=== PATIENT | male | born 1945 | race Caucasian/White ===

== ENCOUNTER 2023-04-17 12:51 | Emergency (ER) | payer MEDICARE, SELFPAY ==
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
[2023-04-17 12:58] VITALS: BP 134/83; PULSE 79; RESP 20; TEMP 36.4; O2SAT 100
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
[2023-04-17] MEDS: ACETAMINOPHEN 500 MG TABLET 1000 MG PO (13:46)
[2023-04-17 14:26] VITALS: BP 121/79; PULSE 55; RESP 19; O2SAT 100
[2023-04-17 15:40] VITALS: BP 116/67; PULSE 82; RESP 18; O2SAT 98
== END 2023-04-17 15:42 ==
LOC: ANHED 14:40
PROVIDERS: Emergency Provider Student in an Organized Health Care Education/Training Program
DX: S00.81XA Abrasion of other part of head, initial encounter (principal); S51.012A Laceration without foreign body of left elbow, initial encounter; S79.912A Unspecified injury of left hip, initial encounter; S69.92XA Unspecified injury of left wrist, hand and finger(s), initial encounter; M19.022 Primary osteoarthritis, left elbow; J34.1 Cyst and mucocele of nose and nasal sinus; M47.812 Spondylosis without myelopathy or radiculopathy, cervical region; Z98.1 Arthrodesis status; M85.88 Other specified disorders of bone density and structure, other site; Y04.0XXA Assault by unarmed brawl or fight, initial encounter
CPT/HCPCS: 70450; 72125; 73080; 73110; 73502; 99284; A9270

== ENCOUNTER 2023-05-08 16:44 | Emergency (ER) | payer MEDICARE, SELFPAY ==
--- NOTE | ~2023-05-08 | CT_ITS ---
EXAMINATION: CT cervical spine wo con DATE: 05/08/2023 20:13 INDICATION: fall, head injury TECHNIQUE: Computed tomography (CT) of the cervical spine was performed without intravenous contrast. Automated exposure control and iterative reconstruction technique were employed. The dose-length pro duct was 593.70 mGy-cm. COMPARISON: 04/17/2023. FINDINGS: Vertebral Body Alignment: Stable multilevel listheses. Reversed lordosis, centered at C4. Craniocervical and atlantoaxial alignment: Moderate degenerative change. Alignment intact. Osseous structures/fracture: No evidence of a lytic or blastic process in the visualized spine. No e vidence of acute fracture. Stable sclerosis of the C3-C5 vertebral bodies. Interbody devices and fusi on at C5-6 and C6-7, stable. Cervical soft tissues: The paraspinal soft tissues planes are maintained. Degenerative changes: Multilevel severe degenerative disc disease and mild-moderate facet arthropathy . Multilevel moderate neural foraminal and central canal narrowing. IMPRESSION: No acute fracture or traumatic malalignment in the cervical spine. Reviewed, dictated and finalized at location K. CAL LABORATORY MANAGER
--- NOTE | ~2023-05-08 | CT_ITS ---
EXAMINATION: CT brain wo con DATE: 05/08/2023 17:34 INDICATION: fall . TECHNIQUE: Computed tomography (CT) of the head was performed without intravenous contrast. The mA wa s adjusted according to patient size. Iterative reconstruction technique was employed. The dose-lengt h product was 1135.00 mGy-cm. COMPARISON: 04/17/2023. FINDINGS: No acute intracranial hemorrhage or extra-axial fluid collection. No hydrocephalus, mass, or herniation. No acute ischemic infarct. Unremarkable dural venous sinus attenuation. No acute osseous abnormality. Left maxillary opacification sclerosis and expansion likely secondary to a mucocele, the remaining ae rated spaces are clear. Moderate atrophy and chronic white matter change. Atherosclerotic intracranial calcification. Bilater al lens replacements. IMPRESSION: No acute intracranial process. Reviewed, dictated and finalized at location K. K CUTTER
--- NOTE | ~2023-05-08 | XR_ITS ---
EXAM: XR hip BI 2V w AP pelvis DATE: 05/08/2023 17:47 HISTORY: fall today left hip pain hx of surgery in pelvis and lumbar . COMPARISON: X-ray left hip 04/17/2023. FINDINGS: Decreased mineralization. No fracture or dislocation. Partially visualized posterior lumba r fusion hardware. Possibly abandoned stimulator wire over the lumbosacral junction/right upper pelvi s, with several adjacent surgical clips. Uncomplicated right SI joint hardware fusion. No lytic or bl astic lesion. Mild bilateral hip osteoarthritis. No erosion or periosteal change. Soft tissues within normal limits. IMPRESSION: No acute osseous finding in the pelvis or bilateral hips. Reviewed, dictated and finalized at location K. WALL MINING MACHINE TENDER
--- NOTE | ~2023-05-08 | CT_ITS ---
EXAMINATION: CT lumbar spine wo con DATE: 05/08/2023 20:13 INDICATION: back pain, fall . TECHNIQUE: Computed tomography (CT) of the lumbar spine was performed without intravenous contrast. A utomated exposure control and iterative reconstruction technique were employed. The dose-length produ ct was 1479.25 mGy-cm. COMPARISON: None. FINDINGS: 5 nonrib-bearing lumbar-type vertebral bodies. Status post posterior fusion spanning L2-L5. Uncomplicated appearing posterior lumbar and right SI joint fusion hardware. Interbody device at L5- S1, in good position. Status post L4 and L5 laminectomy. Metal artifact obscures detail in the centra l canal at multiple levels. Severe right neural foraminal narrowing at L2-3. Multilevel severe degene rative disc disease and severe facet arthropathy. Severe bilateral neural foraminal narrowing at L4-5 . Medullary nephrocalcinosis. Atherosclerotic calcifications.. IMPRESSION: No acute fracture or traumatic malalignment in the lumbar spine. Reviewed, dictated and finalized at location K. ERIOLOGIST PHARMACEUTICAL
[2023-05-08 16:46] VITALS: BP 93/62; PULSE 82; RESP 18; TEMP 36.6; O2SAT 99
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
[2023-05-08 20:03] LABS: Basophils Percent Auto 0.3 % (0.2-1.2); Eosinophils Percent Auto 0.1 % (0-4.4); Hematocrit 43.9 % (42.0-52.0); Hemoglobin 14.1 g/dL (14.0-18.0); Immature Granulocyte Absolute 0.03 K/mm3 (0.00-0.031); Immature Granulocyte Percent A 0.4 % (0-0.5); Lymphocytes Absolute Auto 0.57 K/mm3 (0.9-3.2); Lymphocytes Percent Auto 7.7 % (18.3-44.2); Mean Corpuscular HGB Conc 32.1 g/dl (32-36); Mean Corpuscular Hemoglobin 32.9 pg (26-34); Mean Corpuscular Volume 102.3 fl (80-100); Monocytes Percent Auto 12.8 % (2.6-8.5); Neutrophils Absolute Auto 5.9 K/mm3 (1.3-6.7); Neutrophils Percent Auto 78.7 % (45.5-73.1); Platelet Count Result 228 k/mm3 (150-375); Red Blood Count 4.29 M/mm3 (4.6-6.20); Red Cell Distribution Width 12.9 % (11.5-14.5); White Blood Count 7.4 K/mm3 (4.5-10.0)
[2023-05-08 20:16] LABS: Anion Gap 9 mmol/L (8-16); Blood Urea Nitrogen 20 mg/dL (9-20); Calcium 9.4 mg/dL (8.4-10.2); Carbon Dioxide 25 mmol/L (22-30); Chloride 107 mmol/L (98-107); Estimated CRCL calculation 52 ml/min; Estimated Glomerular Filt Rate > 60; Glucose 113 mg/dL (65-110); Potassium 3.8 mmol/L (3.4-5.0); Sodium 141 mmol/L (137-145)
[2023-05-08 21:04] LABS: Appearance Urine Clear (Clear); Bacteria Urine None Seen /hpf; Bilirubin Urine Negative (Negative); Blood Urine 3+ (Negative); Color Urine Yellow (Yellow); Glucose Urine UA Negative (Negative); Ketones Urine Trace mg/dL (Negative); Leukocyte Esterase Ur Negative LEU/UL (Negative); Nitrate Urine Negative (Negative); Non Pathogenic Casts 0-2; Protein Urine 1+ mg/dL (Negative); RBC Urine 0-2 /hpf (0-2); Specific Grav Ur 1.022 (1.001-1.035); Squamous Epithelial Cell Urine None seen /hpf (Few); WBC Urine 0-5 /hpf; pH Urine 5.5 (5.0-9.0)
[2023-05-08 21:13] LABS: Add Urine Microscopic? YES
[2023-05-08 22:12] VITALS: BP 123/81; PULSE 69; RESP 20; O2SAT 97
--- NOTE | 2023-05-08 22:32 | PC.NURSE ---
Pt walked well with walker but did need assistance getting out of bed. Pt declined pain while walking.
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
== END 2023-05-09 01:30 ==
PROVIDERS: Nurse Practitioner Family; Emergency Provider Physician Assistant
DX: S09.90XA Unspecified injury of head, initial encounter (principal); F03.90 Unspecified dementia, unspecified severity, without behavioral disturbance, psychotic disturbance, mood disturbance, and anxiety; W19.XXXA Unspecified fall, initial encounter; Y92.89 Other specified places as the place of occurrence of the external cause
CPT/HCPCS: 36415; 70450; 72125; 72131; 73521; 80048; 81001; 85025; 99284

== ENCOUNTER 2023-05-11 21:10 | Emergency (ER) | payer MEDICARE, SELFPAY ==
--- NOTE | ~2023-05-11 | XR_ITS ---
Portable chest x-ray Comparison: None Clinical History: Altered mental status Findings: Lungs are clear, without focal consolidation or pleural effusion. Cardiomediastinal silho uette is stable. Bones and soft tissues are unremarkable, aside from right shoulder arthroplasty. Impression: Clear lungs. Reviewed, dictated and finalized at location . IS COURT ATTENDANT Impression: Clear lungs.
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
--- NOTE | ~2023-05-11 | CT_ITS ---
EXAMINATION: CT brain wo con DATE: 05/11/2023 22:43 INDICATION: Fall with head injury TECHNIQUE: Computed tomography (CT) of the head was performed without intravenous contrast. Sagittal and coronal reconstructions were performed. The mA was adjusted according to patient size. Iterative reconstruction technique was employed. The dose-length product was 605.33 mGy-cm. COMPARISON: head CT dated 05/08/2023 FINDINGS: No fracture. No acute intracranial hemorrhage, acute infarction or abnormal extra axial fluid collect ion. There is moderate scattered white matter hypoattenuation consistent with chronic small vessel is chemic disease. Symmetric prominence of the sulci and ventricles consistent with moderate age-appropr iate diffuse cerebral volume loss. No mass/mass effect. Visualized portion of the left maxillary sinu s is completely opacified with thickened sclerotic posterolateral wall consistent with chronic sinusi tis. The sinuses expanded with medial bulging and thinning of the medial wall consistent with a mucoc prema. There is also occlusion of the left ostiomeatal unit. Changes of bilateral intraocular lens repl acement. Mastoid air cells and middle ear cavities are clear. Intracranial calcified cerebral atheros clerosis is noted. IMPRESSION: 1. No fracture or acute intracranial process. 2. Age-related changes including moderate diffuse volume loss and moderate scattered white matter hyp oattenuation consistent with chronic small vessel ischemic disease. 3. 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 Reviewed, dictated and finalized at location A. ECTION OFFICER IMPRESSION: 1. No fracture or acute intracranial process. 2. Age-related changes including moderate diffuse volume loss and moderate scat tered white matter hypoattenuation consistent with chronic small vessel ischemi c disease. 3. 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
[2023-05-11 21:14] VITALS: BP 98/82; PULSE 84; RESP 18; TEMP 36.4; O2SAT 100
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
[2023-05-11 23:39] VITALS: O2SAT 99
[2023-05-11 23:45] VITALS: O2SAT 100
[2023-05-11 23:46] VITALS: BP 119/72; O2SAT 100
[2023-05-12] VITALS (18 sets, daily range): BP systolic 105–145; BP diastolic 65–75; PULSE 69–84; RESP 14–15; O2SAT 97–100
[2023-05-12 01:59] LABS: Basophils Percent Auto 0.5 % (0.2-1.2); Eosinophils Absolute Auto 0.2 K/mm3 (0-0.3); Eosinophils Percent Auto 2.8 % (0-4.4); Hematocrit 38.8 % (42.0-52.0); Hemoglobin 12.7 g/dL (14.0-18.0); Immature Granulocyte Absolute 0.05 K/mm3 (0.00-0.031); Immature Granulocyte Percent A 0.8 % (0-0.5); Lymphocytes Percent Auto 10.7 % (18.3-44.2); Mean Corpuscular HGB Conc 32.7 g/dl (32-36); Mean Corpuscular Hemoglobin 32.6 pg (26-34); Mean Corpuscular Volume 99.5 fl (80-100); Mean Platelet Volume 9.2 fl (7.4-10.4); Monocytes Absolute Auto 0.8 K/mm3 (0.1-0.6); Monocytes Percent Auto 11.5 % (2.6-8.5); Neutrophils Absolute Auto 4.8 K/mm3 (1.3-6.7); Neutrophils Percent Auto 73.7 % (45.5-73.1); Platelet Count Result 208 k/mm3 (150-375); Red Cell Distribution Width 12.9 % (11.5-14.5); White Blood Count 6.5 K/mm3 (4.5-10.0)
[2023-05-12 02:20] LABS: Appearance Urine Clear (Clear); Bilirubin Urine Negative (Negative); Blood Urine Negative (Negative); Color Urine Yellow (Yellow); Glucose Urine UA Negative (Negative); Ketones Urine Negative (Negative); Leukocyte Esterase Ur Negative LEU/UL (Negative); Nitrate Urine Negative (Negative); Protein Urine Negative (Negative); Specific Grav Ur 1.011 (1.001-1.035); Urobilinogen Urine 0.2 mg/dL (<2.0)
[2023-05-12 02:27] LABS: Alanine Aminotransferase 96 U/L (6-50); Albumin Level 3.4 g/dL (3.5-5.1); Alkaline Phosphatase 73 U/L (38-126); Anion Gap 7 mmol/L (8-16); Aspartate Amino Transferase 146 U/L (17-59); Bilirubin,Total 0.9 mg/dL (0.2-1.3); Blood Urea Nitrogen 17 mg/dL (9-20); Carbon Dioxide 25 mmol/L (22-30); Chloride 105 mmol/L (98-107); Estimated CRCL calculation 62 ml/min; Estimated Glomerular Filt Rate > 60; Glucose 115 mg/dL (65-110); Potassium 3.3 mmol/L (3.4-5.0); Sodium 137 mmol/L (137-145)
[2023-05-12 02:37] LABS: Add Urine Microscopic? NO
--- NOTE | 2023-05-12 02:56 | PC.NURSE ---
Cancel EKG per MERY Crane. Pt is ready for discharge.
--- NOTE | 2023-05-12 03:02 | PC.NURSE ---
Report to MAR Paniagua at [facility] unit who is aware pt is coming back to facility and that all imaging was negative. No additional questions. Will set up transport for pt.
== END 2023-05-12 04:01 ==
PROVIDERS: Emergency Provider Physician Assistant
DX: S51.811A Laceration without foreign body of right forearm, initial encounter (principal); M25.551 Pain in right hip; F03.90 Unspecified dementia, unspecified severity, without behavioral disturbance, psychotic disturbance, mood disturbance, and anxiety; J32.0 Chronic maxillary sinusitis; M47.812 Spondylosis without myelopathy or radiculopathy, cervical region; Z98.1 Arthrodesis status; Z79.82 Long term (current) use of aspirin
CPT/HCPCS: 36415; 70450; 71045; 72125; 73521; 80053; 81003; 84443; 85025; 99284

== ENCOUNTER 2023-05-29 23:02 | Emergency (ER) | payer MEDICARE, SELFPAY ==
--- NOTE | ~2023-05-29 | XR_ITS ---
AP view of the pelvis and AP and lateral views of the right hip Clinical history: Pain Findings: No acute fracture or dislocation is seen. Osseous alignment is anatomic. Bilateral hip and SI joint spaces are preserved. Soft tissues are unremarkable. Impression: No significant abnormality is seen. Reviewed, dictated and finalized at [facility]. STRIAL REGISTERED NURSE Impression: No significant abnormality is seen.
--- NOTE | ~2023-05-29 | CT_ITS ---
CT head without contrast Indication: Trauma COMPARISON: 05/11/2023 Technique: Serial scans were obtained through the brain without the administration of contrast. Dose reduction technique was used on this scan by utilizing automated exposure control and iterative recon struction technique. The dose-length product (DLP) was 681.00 mGy-cm. Findings: There is no evidence of intracranial hemorrhage, mass lesion, or acute infarct. The ventri cles and subarachnoid spaces are dilated, consistent with mild atrophy. Low attenuation regions are seen within the periventricular white matter bilaterally, likely representing changes from chronic mi crovascular ischemic disease. There is no evidence of edema, mass effect or midline shift. Opacifica tion the visualized left maxillary sinus noted. The remaining visualized paranasal sinuses and mastoi d air cells are clear. Impression: No intracranial hemorrhage, mass, or acute infarct. Atrophy and chronic white matter changes, as above. Stable left maxillary sinus disease. Reviewed, dictated and finalized at [facility]. PLACER Impression: No intracranial hemorrhage, mass, or acute infarct. Atrophy and chronic white matter changes, as above. Stable left maxillary sinus disease.
[2023-05-29 23:04] VITALS: BP 124/86; PULSE 75; RESP 19; TEMP 36.6; O2SAT 96
[2023-05-30 00:29] VITALS: BP 124/77; PULSE 65; RESP 15; O2SAT 97
--- NOTE | 2023-05-30 00:54 | PC.NURSE ---
Patient states I ate libertarian chicken wings and I shouldn't have and that is why my legs are swollen .
--- NOTE | 2023-05-30 01:21 | ECG_ITS ---
Measurements Intervals [place] Rate: 79 P: -75 SC: 287 QRS: -58 QRSD: 149 T: 73 QT: 432 QTc: 498 Interpretive Statements SINUS RHTYHM RHYTHM WITH FIRST DEGREE AV BLOCK RIGHT BUNDLE BRANCH BLOCK [120+ ms QRS DURATION, UPRIGHT V1, 40+ ms S IN I/aVL/V4/V5/V6] LEFT ANTERIOR FASCICULAR BLOCK [QRS AXIS <= -45, QR IN I, RS IN II] LEFT VENTRICULAR HYPERTROPHY AND ST-T CHANGE [VOLTAGE CRITERIA PLUS ST/T ABNORMALITY] NO PREVIOUS ECG AVAILABLE FOR COMPARISON Electronically Signed On 05-30-2023 15:24:49 ESCROW CLOSER by Wiley Echevarria M.D.
--- NOTE | 2023-05-30 01:31 | ED.FALL ---
HPI - Fall General Chief Complaint: Fall Stated Complaint: RT HIP PAIN S/P GLF Time Seen by Provider: 05/30/23 01:17 History of Present Illness HPI Narrative: 78-year-old male presenting to the emergency department for evaluation after having a ground level fall. Patient does have history of dementia and does have frequent falls. Patient does have reported chronic right hip pain reports the pain is worsened after the fall today. Patient does have an abrasion to his forehead but denies any head neck or back pain. Related Data Allergies Allergy/AdvReac Type Severity Reaction Status Date / Time clopidogrel [From Plavix] Allergy Unknown Verified 04/17/23 13:12 dexlansoprazole Allergy Unknown Verified 04/17/23 13:12 semaglutide [From Ozempic] Allergy Unknown Verified 04/17/23 13:12 Review of Systems Review of Systems: All systems reviewed & are unremarkable except as noted in HPI and below PMFSH Past Medical History Medical History (Updated 05/31/23 @ 07:18 by Evens Spencer MD) History of dementia Social History Social History (Updated 04/18/23 @ 11:13 by Sheila Carter MD) Living arrangements: assisted living Additional living arrangements comments: [facility] in [place], Memory Care unit Course Course Emergency Course: 78-year-old male presenting to the emergency department for evaluation after having a ground level fall. Patient does have an abrasion to his forehead but patient denies any other pain or injury. CT head was negative and right hip x-ray showed no acute fracture dislocation. Re-examination patient denies any pain or complaints. Vital Signs Vital signs: Vital Signs Temperature 97.8 F 05/29/23 23:04 Pulse Rate 75 05/29/23 23:04 Respiratory Rate 19 05/29/23 23:04 Blood Pressure 124/86 05/29/23 23:04 Pulse Oximetry 96 05/29/23 23:04 Oxygen Delivery Room Air 05/29/23 23:04 Temperature 97.8 F 05/29/23 23:04 Pulse Rate 60 05/30/23 04:12 Respiratory Rate 20 05/30/23 04:12 Blood Pressure 120/75 05/30/23 04:12 Pulse Oximetry 97 05/30/23 04:12 Oxygen Delivery Room Air 05/29/23 23:04 MDM - Fall Differential Diagnosis Differential diagnosis: Likely other Imaging Data My impression: X-ray hip: New acute fracture dislocation Radiologist's impression: Overnight read CT head impression: Brain: No hemorrhage, hydrocephalus mass effect or herniation. Bones: Unremarkable. Discharge Plan Discharge Clinical Impression: Head injury, Chronic hip pain Patient Disposition: [place] Long-Term/Asst Living Condition: Stable Instructions: Antibiotic Form, Head Injury (ED) Additional Instructions: Wound care as directed. Have close follow-up with your primary care physician. If you have any worsening symptoms then please call or return to the emergency department. Prescriptions: No Action acetaminophen 500 mg capsule 1,000 mg PO Q6H PRN (Reason: pain) Qty: 20 0RF Follow-up/Referrals: UNKNOWN,DOCTOR [Primary Care Provider] -
[2023-05-30 02:28] VITALS: BP 125/75; PULSE 48; RESP 20; O2SAT 95
[2023-05-30 04:12] VITALS: BP 120/75; PULSE 60; RESP 20; O2SAT 97
== END 2023-05-30 04:47 ==
PROVIDERS: Emergency Provider Emergency Medicine
DX: M25.551 Pain in right hip (principal); S00.01XA Abrasion of scalp, initial encounter; G89.29 Other chronic pain; F03.90 Unspecified dementia, unspecified severity, without behavioral disturbance, psychotic disturbance, mood disturbance, and anxiety; I44.0 Atrioventricular block, first degree; I45.2 Bifascicular block; I51.7 Cardiomegaly; W18.30XA Fall on same level, unspecified, initial encounter
CPT/HCPCS: 70450; 73502; 93005; 99284

== ENCOUNTER 2023-06-22 11:13 | Emergency (ER) | payer MEDICARE, SELFPAY ==
--- NOTE | ~2023-06-22 | US_ITS ---
EXAMINATION: US venous doppler [facility] DATE: 06/22/2023 13:13 INDICATION: Left lower limb swelling. TECHNIQUE: Grayscale ultrasound images without and with compression and Doppler ultrasound images of the left lower extremity veins were obtained. COMPARISON: None. FINDINGS: The visualized portions of left common femoral vein, profunda (deep) femoral vein, femoral vein, popl iteal vein, peroneal veins, posterior tibial veins, and greater saphenous vein outflow are patent. IMPRESSION: 1. No deep venous thrombosis. Reviewed, dictated and finalized at location A.
--- NOTE | ~2023-06-22 | XR_ITS ---
EXAMINATION: XR hip BI 2V w AP pelvis DATE: 06/22/2023 11:46 INDICATION: Hip pain. TECHNIQUE: An anteroposterior view of the pelvis and 2 views of each hip were obtained. COMPARISON: Pelvis and right hip radiographs 05/30/2023, lumbar spine radiographs 05/08/2023 FINDINGS: Bone alignment is normal. No fracture. There is mild osteoarthritis of the hips. There is c hanges of arthrodesis procedure of the right sacroiliac joint with 3 implants. There are changes of p osterior fusion procedure in lumbar spine. Surgical clips overlie the abdomen. There is a retained wi re in the subcutaneous fat posterior to the lumbar spine. IMPRESSION: 1. Mild osteoarthritis of the hips. Reviewed, dictated and finalized at location A.
--- NOTE | ~2023-06-22 | CT_ITS ---
EXAMINATION: CT cervical spine wo con DATE: 06/22/2023 11:38 INDICATION: Trauma with head injury TECHNIQUE: Computed tomography (CT) of the cervical spine was performed without intravenous contrast. Automated exposure control and iterative reconstruction technique were employed. The dose-length pro duct was 526.33 mGy-cm. COMPARISON: None FINDINGS: There is reversal of the normal cervical lordosis. 2 mm anterolisthesis C2 on C3. 3 mm retrolisthesis C4 on C5. Discectomy and likely prosthetic disc placement at C5-C6. C6-C7 anterior spinal fusion wit h interbody fusion device. Severe disc height loss with Modic type III sclerotic endplate changes at C3-C4 and C4-C5. Unchanged mild anterior vertebral body height loss at C4 with early fusion across th e left anterior aspect of the C4-C5 disc space. Mild disc height loss at C2-C3 and C7-T1. No acute fr acture. Combination of disc bulges and posterior disc osteophyte complexes resulting in mild central canal stenosis at C2-C3 through C4-C5 and at C7-T1. Severe multilevel cervical uncovertebral osteoart hritis and mild to moderate multilevel bilateral cervical facet osteoarthritis. Disc interspace 2 mod erate neural foraminal stenosis bilaterally at C3-C4, C4-C5, C6-C7 and C7-T1 and mild neural from edilberto nosis at the remaining cervical neural foramina. Atherosclerotic calcification is at the bilateral ca rotid bulbs. Cervical soft tissues are otherwise unremarkable. Minimal biapical pleural-parenchymal s carring. IMPRESSION: 1. Stable appearance of severe cervical spondylosis with instrumented anterior fusion at C6-C7 and di scectomy with prosthetic disc at C5-C6. No acute osseous abnormality. Reviewed, dictated and finalized at location L. IMPRESSION: 1. Stable appearance of severe cervical spondylosis with instrumented anterior fusion at C6-C7 and discectomy with prosthetic disc at C5-C6. No acute osseous abnormality.
--- NOTE | ~2023-06-22 | CT_ITS ---
CT head without contrast Indication: Head injury COMPARISON: 05/30/2023 Technique: Serial scans were obtained through the brain without the administration of contrast. Dose reduction technique was used on this scan by utilizing automated exposure control and iterative recon struction technique. The dose-length product (DLP) was 1362.00 mGy-cm. Findings: There is no evidence of intracranial hemorrhage, mass lesion, or acute infarct. The ventri cles and subarachnoid spaces are dilated, consistent with mild atrophy. Low attenuation regions are seen within the periventricular white matter bilaterally, likely representing changes from chronic mi crovascular ischemic disease. There is no evidence of edema, mass effect or midline shift. Left maxi llary sinus disease noted. The remaining visualized paranasal sinuses and mastoid air cells are clear . Impression: No intracranial hemorrhage, mass, or acute infarct. Atrophy and chronic white matter changes, as above. Left maxillary sinus disease. Reviewed, dictated and finalized at [facility]. Impression: No intracranial hemorrhage, mass, or acute infarct. Atrophy and chronic white matter changes, as above. Left maxillary sinus disease.
[2023-06-22 11:14] VITALS: BP 138/87; PULSE 69; RESP 17; TEMP 36.6; O2SAT 100
[2023-06-22] MEDS: MORPHINE SULFATE (*CRX) 4 MG/ML INJ IV PUSH (11:47)
--- NOTE | 2023-06-22 12:13 | ED.FALL ---
HPI - Fall General Chief Complaint: Fall Stated Complaint: unwitnessed glf Time Seen by Provider: 06/22/23 11:14 History of Present Illness HPI Narrative: Patient is a 78-year-old male who presents to the ER after a fall at his assisted. He was walking we tripped on a [place]o carpet and fell. He did strike his left forehead on the ground. Denies LOC. He is not on any blood thinning medication. Patient also urinated on himself during the fall. He reports bilateral hip pain. There is no deformity. Also reports mild central neck pain. No numbness or tingling to the arms or legs. No additional concerns. Related Data Allergies Allergy/AdvReac Type Severity Reaction Status Date / Time clopidogrel [From Plavix] Allergy Unknown Verified 06/22/23 11:18 dexlansoprazole Allergy Unknown Verified 06/22/23 11:18 semaglutide [From Ozempic] Allergy Unknown Verified 06/22/23 11:18 Review of Systems Review of Systems: All systems reviewed & are unremarkable except as noted in HPI and below Constitutional: Constitutional: Reports no additional constitutional complaints ENT: Reports system reviewed and no additional complaints, except as documented Cardiovascular: Cardiovascular: Reports no additional cardiovascular complaints Respiratory: Respiratory: Reports no additional respiratory complaints Gastrointestinal: Gastrointestinal: Reports no additional gastrointestinal complaints Genitourinary: Genitourinary: Reports no additional male genitourinary complaints Musculoskeletal: Musculoskeletal: Denies back pain, Reports arthralgias, Denies joint swelling and Denies muscle cramps Integumentary/Breasts: Comments: Forehead laceration Neurologic: Denies syncope, Denies headache(s) and Denies focal weakness PMFSH Past Medical History Medical History (Updated 06/22/23 @ 13:54 by Jah Altamirano MD) History of dementia Social History Social History (Updated 04/18/23 @ 11:13 by Sheila Carter MD) Living arrangements: assisted living Additional living arrangements comments: [facility] in [place], Memory Care unit Exam Narrative: GENERAL: Well-appearing, well-nourished, and in no acute distress. HEAD: Normocephalic, Stellate laceration left forehead superior to the eyebrow. EYES: PERRL and EOMI. ENT: Mucous membranes moist. NECK: Supple. CHEST: Clear to auscultation. No respiratory distress. HEART: Regular rate and rhythm. Normal peripheral pulses. ABDOMEN: Soft, nontender, nondistended. EXTREMITIES: Normal range of motion. 2+ edema of the left lower extremity below the knee when compared to the right side that is slightly warm tender. SKIN: Warm, dry, no rash. NEURO: Alert and oriented x3. PSYCH: Normal mood and affect. Course Course Emergency Course: Patient tolerated repair without issue. Imaging unremarkable. Discharge. Vital Signs Vital signs: Vital Signs Temperature 97.8 F 06/22/23 11:14 Pulse Rate 69 06/22/23 11:14 Respiratory Rate 17 06/22/23 11:14 Blood Pressure 138/87 06/22/23 11:14 Pulse Oximetry 100 06/22/23 11:14 Oxygen Delivery Room Air 06/22/23 11:14 Temperature 97.8 F 06/22/23 11:14 Pulse Rate 69 06/22/23 11:14 Respiratory Rate 17 06/22/23 11:14 Blood Pressure 138/87 06/22/23 11:14 Pulse Oximetry 100 06/22/23 11:14 Oxygen Delivery Room Air 06/22/23 11:14 Procedures Laceration Laceration 1: Date: 06/22/23 Time: 13:20 Site: face Side (If applicable): left Size (cm): 3 Description: stellate Depth: simple, single layer Local Anesthetic: lidocaine 1% and with epi Amount of anesthesia used (mL): 4 Pre-repair: wound explored and irrigated extensively ====== Skin Level ====== Skin layer closed with: nylon Size (cm): 5-0 Number of sutures: 6 Technique: simple, interrupted ====== Subcutaneous Layer ====== ======
--- NOTE | 2023-06-22 12:18 | PC.NURSE ---
Dr. Altamirano notified that the patients LLE near calf is swollen and reddened.
--- NOTE | 2023-06-22 15:15 | PC.NURSE ---
This RN attempted to call [facility]ina Lemus in [place] for nurse to nurse report, no answer at this time, mail box is full.
== END 2023-06-22 15:16 ==
PROVIDERS: Emergency Provider Emergency Medicine
DX: S01.81XA Laceration without foreign body of other part of head, initial encounter (principal); S79.912A Unspecified injury of left hip, initial encounter; S79.911A Unspecified injury of right hip, initial encounter; R60.0 Localized edema; F03.90 Unspecified dementia, unspecified severity, without behavioral disturbance, psychotic disturbance, mood disturbance, and anxiety; M16.0 Bilateral primary osteoarthritis of hip; W18.09XA Striking against other object with subsequent fall, initial encounter
CPT/HCPCS: 12013; 70450; 72125; 73521; 93971; 96374; 99284; J2270